=== PATIENT | female | born 1940 | race Asian ===

== ENCOUNTER → 2016-06-09 | Outpatient (CLI) | payer MEDICARE, OTHER ==
[~2016-06-09] VITALS: Ht 147.3 cm; Wt 71.0 kg
[~2016-06-09] MED LIST: ALLO300T2 PO; ASPI-825 PO; ATOR20TA86 PO; DILT60TA36 PO; FURO40 PO; HYDR25 PO; LEVO25TA4 PO; LISI-662 PO; VITAD1000 PO
[2016-06-09 10:26] VITALS: BP 122/66
== END | disposition home or self-care (01) ==
LOC: SRCNTR 10:08
PROVIDERS: ATTEND Internal Medicine Cardiovascular Disease
DX: I10 Essential (primary) hypertension (principal); E78.5 Hyperlipidemia, unspecified; E03.9 Hypothyroidism, unspecified; I49.9 Cardiac arrhythmia, unspecified; M34.1 CR(E)ST syndrome
CPT/HCPCS: G0463

== ENCOUNTER → 2016-06-12 | Outpatient (CLI) | payer MEDICARE, OTHER | END | disposition home or self-care (01) | LOC: RADPV 12:58 | PROVIDERS: ATTEND Internal Medicine | DX: M81.0 Age-related osteoporosis without current pathological fracture (principal) | CPT/HCPCS: 77080 ==

== ENCOUNTER → 2016-06-13 | Outpatient (CLI) | payer MEDICARE, OTHER ==
[~2016-06-13] VITALS: Ht 149.9 cm; Wt 70.0 kg
[2016-06-13 10:39] VITALS: BP 121/57
== END | disposition home or self-care (01) ==
LOC: SRCNTR 10:26
PROVIDERS: ATTEND Surgery Surgical Critical Care
DX: I87.2 Venous insufficiency (chronic) (peripheral) (principal); I83.93 Asymptomatic varicose veins of bilateral lower extremities
CPT/HCPCS: G0463

== ENCOUNTER → 2016-07-12 | Outpatient (CLI) | payer MEDICARE, OTHER ==
[~2016-07-12] VITALS: Ht 144.8 cm; Wt 70.0 kg
[~2016-07-12] MED LIST changes: -HYDR25 PO; +HYDR25TA84 PO
[2016-07-12 09:58] VITALS: BP 121/58
== END | disposition home or self-care (01) ==
LOC: SRCNTR 09:53
PROVIDERS: ATTEND Internal Medicine Cardiovascular Disease
DX: I10 Essential (primary) hypertension (principal); E78.5 Hyperlipidemia, unspecified; E03.9 Hypothyroidism, unspecified; I49.9 Cardiac arrhythmia, unspecified; M34.1 CR(E)ST syndrome
CPT/HCPCS: G0463

== ENCOUNTER 2016-08-14 00:23 | Emergency (ER) | payer MEDICARE, OTHER ==
[~2016-08-14] VITALS: Ht 149.9 cm; Wt 69.1 kg
[~2016-08-14 00:23] MED LIST changes: +HYDR25 PO; -HYDR25TA84 PO
[2016-08-14 01:45] LABS: BASOPHILS # (AUTO) 0.02 K/uL (0.00-0.20); BASOPHILS % (AUTO) 0.4 % (0.0-2.0); EOSINOPHILS # (AUTO) 0.16 K/uL (0.00-0.70); HEMATOCRIT 37.5 % (36-46); HEMOGLOBIN 12.1 g/dL (12.0-16.0); LYMPHOCYTES # (AUTO) 1.1 K/uL (1.0-4.8); LYMPHOCYTES % (AUTO) 19.6 % (22.0-44.0); MEAN CORPUSCULAR HEMOGLOBIN 31.2 pg (26.0-34.0); MEAN CORPUSCULAR HGB CONC 32.3 G/dL (31.0-37.0); MEAN CORPUSCULAR VOLUME 97 fL (80-100); MONOCYTES # (AUTO) 0.6 K/uL (0.1-1.0); MONOCYTES % (AUTO) 9.7 % (2.0-9.0); NEUTROPHILS # (AUTO) 3.8 K/uL (1.8-7.7); NEUTROPHILS % (AUTO) 67.4 % (40.0-70.0); PLATELET COUNT (AUTO) 229 K/uL (150-450); RED BLOOD CELL COUNT(AUTO) 3.89 MIL/uL (4.00-5.20); RED CELL DISTRIBUTION WIDTH 15.4 % (11.5-14.5); WHITE BLOOD COUNT (AUTO) 5.7 K/uL (4.5-11.0)
[2016-08-14 01:53] LABS: ANION GAP 8 mmol/L (8-16); CALCIUM, TOTAL 9.4 mg/dL (8.8-10.5); CARBON DIOXIDE 29 mmol/L (22-29); CHLORIDE 107 mmol/L (98-107); CREATININE 0.78 mg/dL (0.60-1.30); GLOMERULAR FILTR. RATE CALC > 60 mL/min (>60); POTASSIUM 4.4 mmol/L (3.5-5.1); SODIUM SERUM 144 mmol/L (136-145); UREA NITROGEN, BLOOD 16 mg/dL (7-18)
[2016-08-14 01:59] LABS: ALANINE AMINOTRANSFERASE 23 U/L (12-78); ALBUMIN 3.6 g/dL (3.4-5.0); ASPARTATE AMINOTRANSFERASE 18 U/L (15-37); BILIRUBIN,TOTAL 0.3 mg/dL (0.1-1.0); TOTAL PROTEIN, SERUM 7.4 g/dL (6.4-8.2)
[2016-08-14 04:03] VITALS: BP 134/76
[2016-08-14 04:11] LABS: INR 0.9 (0.9-1.1)
== END 2016-08-14 04:36 | disposition home or self-care (01) ==
LOC: EMS 00:24
DX: J02.9 Acute pharyngitis, unspecified (principal); K52.9 Noninfective gastroenteritis and colitis, unspecified; I10 Essential (primary) hypertension; Z91.041 Radiographic dye allergy status; Z88.0 Allergy status to penicillin; Z88.1 Allergy status to other antibiotic agents
CPT/HCPCS: 70360; 99285

== ENCOUNTER → 2016-09-11 | Outpatient (CLI) | payer MEDICARE, OTHER ==
[~2016-09-11] VITALS: Ht 144.8 cm; Wt 68.0 kg
[~2016-09-11] MED LIST changes: -HYDR25 PO; +HYDR25TA84 PO
[2016-09-11 10:56] VITALS: BP 127/64
== END | disposition home or self-care (01) ==
LOC: SRCNTR 10:30
PROVIDERS: ATTEND Internal Medicine Cardiovascular Disease
DX: I10 Essential (primary) hypertension (principal); E78.5 Hyperlipidemia, unspecified; E03.9 Hypothyroidism, unspecified; I49.9 Cardiac arrhythmia, unspecified; M34.1 CR(E)ST syndrome; R42 Dizziness and giddiness
CPT/HCPCS: G0463

== ENCOUNTER → 2016-11-10 | Outpatient (CLI) | payer MEDICARE, OTHER ==
[~2016-11-10] VITALS: Ht 147.3 cm; Wt 70.5 kg
[~2016-11-10] MED LIST changes: +ALEN70TA2 PO
[2016-11-10 10:17] VITALS: BP 94/54
== END | disposition home or self-care (01) ==
LOC: SRCNTR 10:10
PROVIDERS: ATTEND Internal Medicine Cardiovascular Disease
DX: E03.9 Hypothyroidism, unspecified (principal); E78.5 Hyperlipidemia, unspecified; I10 Essential (primary) hypertension; I49.9 Cardiac arrhythmia, unspecified; M34.1 CR(E)ST syndrome; R42 Dizziness and giddiness; Z88.0 Allergy status to penicillin; Z79.82 Long term (current) use of aspirin
CPT/HCPCS: G0463

== ENCOUNTER → 2017-01-10 | Outpatient (CLI) | payer MEDICARE, OTHER ==
[~2017-01-10] VITALS: Ht 147.3 cm; Wt 72.0 kg
[2017-01-10 10:25] VITALS: BP 141/71
== END | disposition home or self-care (01) ==
LOC: SRCNTR 10:10
PROVIDERS: ATTEND Internal Medicine Cardiovascular Disease
DX: I10 Essential (primary) hypertension (principal); E03.9 Hypothyroidism, unspecified; E78.5 Hyperlipidemia, unspecified; I49.9 Cardiac arrhythmia, unspecified; R42 Dizziness and giddiness; M34.1 CR(E)ST syndrome; Z79.82 Long term (current) use of aspirin; Z88.0 Allergy status to penicillin
CPT/HCPCS: G0463

== ENCOUNTER → 2017-03-12 | Outpatient (CLI) | payer MEDICARE, OTHER ==
[~2017-03-12] VITALS: Ht 147.3 cm; Wt 71.0 kg
[~2017-03-12] MED LIST changes: -VITAD1000 PO
[2017-03-12 11:04] VITALS: BP 115/64
== END | disposition home or self-care (01) ==
LOC: SRCNTR 10:30
PROVIDERS: ATTEND Internal Medicine Cardiovascular Disease
DX: I10 Essential (primary) hypertension (principal); E03.9 Hypothyroidism, unspecified; E78.5 Hyperlipidemia, unspecified; I49.9 Cardiac arrhythmia, unspecified; M34.1 CR(E)ST syndrome; R42 Dizziness and giddiness; M19.90 Unspecified osteoarthritis, unspecified site; Z88.0 Allergy status to penicillin; Z79.82 Long term (current) use of aspirin
CPT/HCPCS: G0463

== ENCOUNTER → 2017-04-11 | Outpatient (CLI) | payer MEDICARE, OTHER | END | disposition home or self-care (01) | LOC: RADPV 09:16 | PROVIDERS: ATTEND General Practice | DX: R04.2 Hemoptysis (principal); I70.0 Atherosclerosis of aorta; I51.7 Cardiomegaly | CPT/HCPCS: 71046 ==

== ENCOUNTER → 2017-05-16 | Outpatient (CLI) | payer MEDICARE, OTHER ==
[~2017-05-16] VITALS: Ht 144.8 cm; Wt 72.0 kg
[~2017-05-16] MED LIST changes: +TERI2.4P SQ
[2017-05-16 10:42] VITALS: BP 133/64
== END | disposition home or self-care (01) ==
LOC: SRCNTR 10:25
PROVIDERS: ATTEND Internal Medicine Cardiovascular Disease
DX: I10 Essential (primary) hypertension (principal); E03.9 Hypothyroidism, unspecified; E78.5 Hyperlipidemia, unspecified; M81.0 Age-related osteoporosis without current pathological fracture; I49.9 Cardiac arrhythmia, unspecified; M34.1 CR(E)ST syndrome; Z79.82 Long term (current) use of aspirin; Z88.0 Allergy status to penicillin
CPT/HCPCS: G0463

== ENCOUNTER → 2017-06-20 | Outpatient (CLI) | payer MEDICARE, OTHER ==
[~2017-06-20] MED LIST changes: -ALEN70TA2 PO
== END | disposition home or self-care (01) ==
LOC: RADMN 10:02
PROVIDERS: ATTEND General Practice
DX: R91.8 Other nonspecific abnormal finding of lung field (principal)
CPT/HCPCS: 71250

== ENCOUNTER → 2017-09-06 | Outpatient (CLI) | payer MEDICARE, OTHER ==
[~2017-09-06] VITALS: Ht 147.3 cm; Wt 72.0 kg
[2017-09-06 12:59] VITALS: BP 130/56
== END | disposition home or self-care (01) ==
LOC: SRCNTR 12:41
PROVIDERS: ATTEND Internal Medicine Critical Care Medicine
DX: R91.8 Other nonspecific abnormal finding of lung field (principal); I10 Essential (primary) hypertension; M10.9 Gout, unspecified; M34.1 CR(E)ST syndrome
CPT/HCPCS: G0463

== ENCOUNTER → 2017-10-15 | Outpatient (CLI) | payer MEDICARE, OTHER ==
[~2017-10-15] VITALS: Ht 147.3 cm; Wt 73.5 kg
[~2017-10-15] MED LIST changes: +HYDR10TA31 PO
[2017-10-15 10:12] VITALS: BP 124/52
== END | disposition home or self-care (01) ==
LOC: SRCNTR 10:07
PROVIDERS: ATTEND Internal Medicine Cardiovascular Disease
DX: I10 Essential (primary) hypertension (principal); I49.9 Cardiac arrhythmia, unspecified; E78.5 Hyperlipidemia, unspecified; E03.9 Hypothyroidism, unspecified; M34.1 CR(E)ST syndrome; J44.9 Chronic obstructive pulmonary disease, unspecified
CPT/HCPCS: G0463

== ENCOUNTER → 2017-10-29 | Outpatient (CLI) | payer MEDICARE, OTHER ==
[~2017-10-29] MED LIST changes: -HYDR25TA84 PO; -TERI2.4P SQ
== END | disposition home or self-care (01) ==
LOC: LABPV 10:38
PROVIDERS: ATTEND Internal Medicine Critical Care Medicine
DX: R91.1 Solitary pulmonary nodule (principal); I10 Essential (primary) hypertension; E78.5 Hyperlipidemia, unspecified; E03.9 Hypothyroidism, unspecified
CPT/HCPCS: 86480

== ENCOUNTER → 2017-11-12 | Outpatient (CLI) | payer MEDICARE, OTHER ==
[~2017-11-12] VITALS: Ht 147.3 cm; Wt 73.5 kg
[2017-11-12 11:40] VITALS: BP 116/53
== END | disposition home or self-care (01) ==
LOC: SRCNTR 11:30
PROVIDERS: ATTEND Internal Medicine Critical Care Medicine
DX: I10 Essential (primary) hypertension (principal); M10.9 Gout, unspecified; M34.1 CR(E)ST syndrome; R91.1 Solitary pulmonary nodule; M81.0 Age-related osteoporosis without current pathological fracture; E78.5 Hyperlipidemia, unspecified; E78.00 Pure hypercholesterolemia, unspecified; F41.9 Anxiety disorder, unspecified; F44.9 Dissociative and conversion disorder, unspecified; Z88.0 Allergy status to penicillin; Z88.2 Allergy status to sulfonamides
CPT/HCPCS: G0463

== ENCOUNTER → 2018-02-18 | Outpatient (CLI) | payer MEDICARE, OTHER ==
[~2018-02-18] VITALS: Ht 147.3 cm; Wt 71.0 kg
[~2018-02-18] MED LIST changes: +CALC-1038 PO; +CHOL200059 PO
[2018-02-18 10:30] VITALS: BP 123/52
== END | disposition home or self-care (01) ==
LOC: SRCNTR 10:29
PROVIDERS: ATTEND Internal Medicine Cardiovascular Disease
DX: I10 Essential (primary) hypertension (principal); E03.9 Hypothyroidism, unspecified; I49.9 Cardiac arrhythmia, unspecified; E78.5 Hyperlipidemia, unspecified; M34.1 CR(E)ST syndrome
CPT/HCPCS: 93005; G0463

== ENCOUNTER → 2018-04-22 | Outpatient (CLI) | payer MEDICARE, OTHER ==
[~2018-04-22] VITALS: Ht 144.8 cm; Wt 70.0 kg
[2018-04-22 10:12] VITALS: BP 114/47
== END | disposition home or self-care (01) ==
LOC: SRCNTR 10:05
PROVIDERS: ATTEND Internal Medicine Cardiovascular Disease
DX: I10 Essential (primary) hypertension (principal); E78.5 Hyperlipidemia, unspecified; E03.9 Hypothyroidism, unspecified
CPT/HCPCS: G0463

== ENCOUNTER → 2018-05-14 | Outpatient (CLI) | payer MEDICARE, OTHER ==
[~2018-05-14] VITALS: Ht 147.3 cm; Wt 71.0 kg
[2018-05-14 14:29] VITALS: BP 137/43
== END | disposition home or self-care (01) ==
LOC: SRCNTR 14:12
PROVIDERS: ATTEND Internal Medicine Critical Care Medicine
DX: I10 Essential (primary) hypertension (principal); R07.1 Chest pain on breathing; M10.9 Gout, unspecified
CPT/HCPCS: G0463

== ENCOUNTER → 2018-05-17 | Outpatient (CLI) | payer MEDICARE, OTHER | END | disposition home or self-care (01) | LOC: RADMN 12:59 | PROVIDERS: ATTEND Internal Medicine Critical Care Medicine | DX: J98.4 Other disorders of lung (principal); Z90.49 Acquired absence of other specified parts of digestive tract | CPT/HCPCS: 71250 ==

== ENCOUNTER → 2018-06-21 | Outpatient (CLI) | payer MEDICARE, OTHER ==
[~2018-06-21] VITALS: Ht 147.3 cm; Wt 71.0 kg
[2018-06-21 10:37] VITALS: BP 143/76
== END | disposition home or self-care (01) ==
LOC: SRCNTR 10:20
PROVIDERS: ATTEND Internal Medicine Cardiovascular Disease
DX: E78.5 Hyperlipidemia, unspecified (principal); E03.9 Hypothyroidism, unspecified; I49.9 Cardiac arrhythmia, unspecified; I10 Essential (primary) hypertension
CPT/HCPCS: G0463

== ENCOUNTER → 2018-07-01 | Outpatient (CLI) | payer MEDICARE, OTHER ==
[~2018-07-01] VITALS: Ht 144.8 cm; Wt 70.0 kg
[~2018-07-01] MED LIST changes: -DILT60TA36 PO
[2018-07-01 13:32] VITALS: BP 149/64
== END | disposition home or self-care (01) ==
LOC: SRCNTR 13:22
PROVIDERS: ATTEND Internal Medicine Critical Care Medicine
DX: I10 Essential (primary) hypertension (principal); M10.9 Gout, unspecified; M34.1 CR(E)ST syndrome; R91.1 Solitary pulmonary nodule
CPT/HCPCS: G0463

== ENCOUNTER → 2018-11-25 | Outpatient (CLI) | payer MEDICARE, OTHER ==
[~2018-11-25] VITALS: Ht 144.8 cm; Wt 71.0 kg
[2018-11-25 11:03] VITALS: BP 146/62
== END | disposition home or self-care (01) ==
LOC: SRCNTR 11:03
PROVIDERS: ATTEND Internal Medicine Cardiovascular Disease
DX: I10 Essential (primary) hypertension (principal); E78.5 Hyperlipidemia, unspecified; E03.9 Hypothyroidism, unspecified
CPT/HCPCS: G0463

== ENCOUNTER → 2019-10-16 | Outpatient (CLI) | payer MEDICARE, OTHER ==
[~2019-10-16] MED LIST changes: +CHOL200016 PO; -CHOL200059 PO
== END | disposition home or self-care (01) ==
LOC: SRCNTR 14:02
PROVIDERS: ATTEND Internal Medicine Cardiovascular Disease
DX: I49.9 Cardiac arrhythmia, unspecified (principal); I10 Essential (primary) hypertension; E78.5 Hyperlipidemia, unspecified; E03.9 Hypothyroidism, unspecified
CPT/HCPCS: Q3014

== ENCOUNTER → 2019-10-23 | Outpatient (CLI) | payer MEDICARE, OTHER ==
[2019-10-23 10:24] LABS: BASOPHILS % (AUTO) 1.2 % (0.0-2.0); EOSINOPHILS % (AUTO) 3.4 % (1.0-6.0); HEMATOCRIT 39.5 % (36-46); HEMOGLOBIN 13.1 g/dL (12.0-16.0); LYMPHOCYTES # (AUTO) 1.6 K/uL (1.0-4.8); LYMPHOCYTES % (AUTO) 30.6 % (22.0-44.0); MEAN CORPUSCULAR HEMOGLOBIN 32.8 pg (26.0-34.0); MEAN CORPUSCULAR HGB CONC 33.3 G/dL (31.0-37.0); MEAN CORPUSCULAR VOLUME 99 fL (80-100); MONOCYTES # (AUTO) 0.5 K/uL (0.1-1.0); MONOCYTES % (AUTO) 9.7 % (2.0-9.0); NEUTROPHILS # (AUTO) 2.9 K/uL (1.8-7.7); NEUTROPHILS % (AUTO) 55.1 % (40.0-70.0); PLATELET COUNT (AUTO) 222 K/uL (150-450); RED BLOOD CELL COUNT(AUTO) 4.01 MIL/uL (4.00-5.20); RED CELL DISTRIBUTION WIDTH 14.3 % (11.5-14.5)
[2019-10-23 10:41] LABS: HEMOGLOBIN A1C 5.2 % (3.8-5.6)
[2019-10-23 10:59] LABS: ALBUMIN 3.7 g/dL (3.4-5.0); BILIRUBIN,TOTAL 0.4 mg/dL (0.1-1.0); CALCIUM, TOTAL 9.8 mg/dL (8.8-10.5); CHOL/HDL RATIO 2.5 (3.9-5.7); CREATININE 1.1 mg/dL (0.60-1.30); FREE T4 (FREE THYROXINE) 1.23 ng/dL (0.76-1.46); POTASSIUM 4.6 mmol/L (3.5-5.1); THYROID STIMULATING HORMONE 3.92 uIU/mL (0.36-3.74); TOTAL PROTEIN, SERUM 8.4 g/dL (6.4-8.2)
== END | disposition home or self-care (01) ==
LOC: LABPV 09:26
PROVIDERS: ATTEND Internal Medicine Cardiovascular Disease
DX: I10 Essential (primary) hypertension (principal); E11.9 Type 2 diabetes mellitus without complications; E78.5 Hyperlipidemia, unspecified; Z79.899 Other long term (current) drug therapy
CPT/HCPCS: 82306; 83036; 84439; 84443

== ENCOUNTER → 2019-11-24 | Outpatient (CLI) | payer MEDICARE, OTHER ==
[~2019-11-24] VITALS: Ht 147.3 cm; Wt 71.8 kg
[2019-11-24 10:29] VITALS: BP 128/56
== END | disposition home or self-care (01) ==
LOC: SRCNTR 10:28
PROVIDERS: ATTEND Internal Medicine Cardiovascular Disease
DX: I10 Essential (primary) hypertension (principal); I49.9 Cardiac arrhythmia, unspecified; E78.5 Hyperlipidemia, unspecified; E03.9 Hypothyroidism, unspecified; M34.1 CR(E)ST syndrome; E79.0 Hyperuricemia without signs of inflammatory arthritis and tophaceous disease; M19.90 Unspecified osteoarthritis, unspecified site
CPT/HCPCS: G0463; Z7500

== ENCOUNTER → 2020-01-26 | Outpatient (CLI) | payer MEDICARE, OTHER ==
[~2020-01-26] VITALS: Ht 147.3 cm; Wt 73.0 kg
[2020-01-26 10:34] VITALS: BP 131/52
== END | disposition home or self-care (01) ==
LOC: SRCNTR 10:31
PROVIDERS: ATTEND Internal Medicine Cardiovascular Disease
DX: I49.9 Cardiac arrhythmia, unspecified (principal); I10 Essential (primary) hypertension; E78.5 Hyperlipidemia, unspecified; E03.9 Hypothyroidism, unspecified; M34.1 CR(E)ST syndrome; E79.0 Hyperuricemia without signs of inflammatory arthritis and tophaceous disease
CPT/HCPCS: G0463; Z7500

== ENCOUNTER → 2020-03-10 | Outpatient (CLI) | payer MEDICARE, OTHER ==
[~2020-03-10] VITALS: Ht 144.8 cm; Wt 72.0 kg
[2020-03-10 10:51] VITALS: BP 141/71
== END | disposition home or self-care (01) ==
LOC: SRCNTR 10:36
PROVIDERS: ATTEND Internal Medicine Cardiovascular Disease
DX: I49.9 Cardiac arrhythmia, unspecified (principal); I10 Essential (primary) hypertension; E78.5 Hyperlipidemia, unspecified; E03.9 Hypothyroidism, unspecified; M10.9 Gout, unspecified
CPT/HCPCS: G0463

== ENCOUNTER → 2020-03-10 | Outpatient (CLI) | payer MEDICARE, OTHER | END | disposition home or self-care (01) | LOC: RADPV 11:17 | PROVIDERS: ATTEND Internal Medicine Cardiovascular Disease | DX: I70.0 Atherosclerosis of aorta (principal); I51.7 Cardiomegaly; J92.9 Pleural plaque without asbestos; M51.34 Other intervertebral disc degeneration, thoracic region; J18.9 Pneumonia, unspecified organism | CPT/HCPCS: 71046; 71046-TC ==

== ENCOUNTER → 2020-04-22 | Outpatient (CLI) | payer MEDICARE, OTHER ==
[~2020-04-22] VITALS: Ht 147.3 cm; Wt 71.7 kg
[2020-04-22 12:17] VITALS: BP 133/77
== END | disposition home or self-care (01) ==
LOC: SRCNTR 11:51
PROVIDERS: ATTEND Internal Medicine Critical Care Medicine
DX: I10 Essential (primary) hypertension (principal); M10.9 Gout, unspecified; R91.8 Other nonspecific abnormal finding of lung field; Z79.82 Long term (current) use of aspirin; Z79.899 Other long term (current) drug therapy; Z88.0 Allergy status to penicillin
CPT/HCPCS: G0463; Z7500

== ENCOUNTER → 2020-04-28 | Outpatient (CLI) | payer MEDICARE, OTHER | END | disposition home or self-care (01) | LOC: RADMN 09:34 | PROVIDERS: ATTEND Internal Medicine Critical Care Medicine | DX: J98.4 Other disorders of lung (principal); I70.0 Atherosclerosis of aorta; R91.1 Solitary pulmonary nodule; I51.7 Cardiomegaly; I25.10 Atherosclerotic heart disease of native coronary artery without angina pectoris | CPT/HCPCS: 71250 ==

== ENCOUNTER → 2020-05-12 | Outpatient (CLI) | payer MEDICARE, OTHER ==
[~2020-05-12] VITALS: Ht 144.8 cm; Wt 70.4 kg
[~2020-05-12] MED LIST changes: -LISI-662 PO; +LISI-894 PO
[2020-05-12 10:17] VITALS: BP 126/56
== END | disposition home or self-care (01) ==
LOC: SRCNTR 09:59
PROVIDERS: ATTEND Internal Medicine Cardiovascular Disease
DX: I10 Essential (primary) hypertension (principal); E78.5 Hyperlipidemia, unspecified; E03.9 Hypothyroidism, unspecified; I49.9 Cardiac arrhythmia, unspecified; M34.1 CR(E)ST syndrome; M10.9 Gout, unspecified
CPT/HCPCS: G0463; Z7500

== ENCOUNTER → 2020-07-14 | Outpatient (CLI) | payer MEDICARE, OTHER ==
[~2020-07-14] VITALS: Ht 144.8 cm; Wt 70.4 kg
[2020-07-14 10:29] VITALS: BP 139/59
== END | disposition home or self-care (01) ==
LOC: SRCNTR 10:07
PROVIDERS: ATTEND Internal Medicine Cardiovascular Disease
DX: I10 Essential (primary) hypertension (principal); E78.5 Hyperlipidemia, unspecified; E03.9 Hypothyroidism, unspecified; M19.90 Unspecified osteoarthritis, unspecified site; I49.9 Cardiac arrhythmia, unspecified; M34.1 CR(E)ST syndrome
CPT/HCPCS: 93005; G0463

== ENCOUNTER → 2020-07-30 | Outpatient (CLI) | payer MEDICARE, OTHER ==
[~2020-07-30] VITALS: Ht 147.3 cm; Wt 72.0 kg
[2020-07-30 11:06] VITALS: BP 127/48
== END | disposition home or self-care (01) ==
LOC: SRCNTR 10:15
PROVIDERS: ATTEND Internal Medicine Critical Care Medicine
DX: I10 Essential (primary) hypertension (principal); M34.1 CR(E)ST syndrome; I73.00 Raynaud's syndrome without gangrene; R91.1 Solitary pulmonary nodule; M10.9 Gout, unspecified
CPT/HCPCS: G0463

== ENCOUNTER 2020-08-19 23:48 | Emergency (ER) | payer MEDICARE, OTHER ==
[~2020-08-19] VITALS: Ht 152.4 cm; Wt 77.0 kg
[2020-08-20 02:30] VITALS: BP 130/77
== END 2020-08-20 02:36 | disposition home or self-care (01) ==
LOC: EMS 08-20 01:00
DX: I10 Essential (primary) hypertension (principal); Z90.710 Acquired absence of both cervix and uterus; Z90.89 Acquired absence of other organs; Z88.0 Allergy status to penicillin; Z88.8 Allergy status to other drugs, medicaments and biological substances; Z91.041 Radiographic dye allergy status; Z79.899 Other long term (current) drug therapy
CPT/HCPCS: 99283; Z7502

== ENCOUNTER → 2020-09-03 | Outpatient (CLI) | payer MEDICARE, OTHER | END | disposition home or self-care (01) | LOC: RADPV 09:23 | PROVIDERS: ATTEND General Practice | DX: M85.88 Other specified disorders of bone density and structure, other site (principal); M81.0 Age-related osteoporosis without current pathological fracture | CPT/HCPCS: 77080 ==

== ENCOUNTER → 2020-09-13 | Outpatient (CLI) | payer MEDICARE, OTHER ==
[~2020-09-13] VITALS: Ht 147.3 cm; Wt 70.0 kg
[2020-09-13 10:49] VITALS: BP 122/73
== END | disposition home or self-care (01) ==
LOC: SRCNTR 10:24
PROVIDERS: ATTEND Internal Medicine Cardiovascular Disease
DX: I10 Essential (primary) hypertension (principal); E78.5 Hyperlipidemia, unspecified; E03.9 Hypothyroidism, unspecified; I49.9 Cardiac arrhythmia, unspecified; M34.1 CR(E)ST syndrome; E79.0 Hyperuricemia without signs of inflammatory arthritis and tophaceous disease
CPT/HCPCS: G0463

== ENCOUNTER → 2020-11-12 | Outpatient (CLI) | payer MEDICARE, OTHER ==
[~2020-11-12] VITALS: Ht 144.8 cm; Wt 72.0 kg
[~2020-11-12] MED LIST changes: -CALC-1038 PO
[2020-11-12 09:59] VITALS: BP 122/65
== END | disposition home or self-care (01) ==
LOC: SRCNTR 09:12
PROVIDERS: ATTEND Internal Medicine Critical Care Medicine
DX: I10 Essential (primary) hypertension (principal); I73.00 Raynaud's syndrome without gangrene; M10.9 Gout, unspecified; R91.1 Solitary pulmonary nodule; M34.1 CR(E)ST syndrome
CPT/HCPCS: G0463

== ENCOUNTER → 2020-11-15 | Outpatient (CLI) | payer MEDICARE, OTHER ==
[~2020-11-15] MED LIST changes: +ALEN70TA65 PO
== END | disposition home or self-care (01) ==
LOC: MSR 09:27
PROVIDERS: ATTEND Internal Medicine Critical Care Medicine
DX: I51.7 Cardiomegaly (principal); M47.812 Spondylosis without myelopathy or radiculopathy, cervical region; M47.814 Spondylosis without myelopathy or radiculopathy, thoracic region
CPT/HCPCS: 71046

== ENCOUNTER → 2020-11-15 | Outpatient (CLI) | payer MEDICARE, OTHER ==
[~2020-11-15] VITALS: Ht 144.8 cm; Wt 71.0 kg
[2020-11-15 10:15] VITALS: BP 134/58
== END | disposition home or self-care (01) ==
LOC: SRCNTR 09:58
PROVIDERS: ATTEND Internal Medicine Cardiovascular Disease
DX: I10 Essential (primary) hypertension (principal); E03.9 Hypothyroidism, unspecified; E78.5 Hyperlipidemia, unspecified; I49.9 Cardiac arrhythmia, unspecified; M34.1 CR(E)ST syndrome; E79.0 Hyperuricemia without signs of inflammatory arthritis and tophaceous disease
CPT/HCPCS: G0463; Z7500

== ENCOUNTER → 2020-12-21 | Outpatient (CLI) | payer MEDICARE, OTHER ==
[2020-12-21 11:04] VITALS: BP 157/68
== END | disposition home or self-care (01) ==
LOC: SRCNTR 10:18
PROVIDERS: ATTEND Internal Medicine Critical Care Medicine
DX: I10 Essential (primary) hypertension (principal); I73.00 Raynaud's syndrome without gangrene; M10.9 Gout, unspecified; M34.1 CR(E)ST syndrome; R91.8 Other nonspecific abnormal finding of lung field
CPT/HCPCS: G0463

== ENCOUNTER → 2021-01-14 | Outpatient (CLI) | payer MEDICARE, OTHER ==
[~2021-01-14] VITALS: Ht 147.3 cm; Wt 71.2 kg
[~2021-01-14] MED LIST changes: +TRI2515C TP
[2021-01-14 12:26] VITALS: BP 137/75
== END | disposition home or self-care (01) ==
LOC: SRCNTR 12:23
PROVIDERS: ATTEND Internal Medicine Cardiovascular Disease
DX: I10 Essential (primary) hypertension (principal); E78.5 Hyperlipidemia, unspecified; E03.9 Hypothyroidism, unspecified; I49.9 Cardiac arrhythmia, unspecified; M34.1 CR(E)ST syndrome; E79.0 Hyperuricemia without signs of inflammatory arthritis and tophaceous disease
CPT/HCPCS: G0463

== ENCOUNTER → 2021-01-25 | Outpatient (CLI) | payer MEDICARE, OTHER | END | disposition home or self-care (01) | LOC: RADPV 12:26 | PROVIDERS: ATTEND Internal Medicine Cardiovascular Disease | DX: I08.3 Combined rheumatic disorders of mitral, aortic and tricuspid valves (principal); I50.1 Left ventricular failure, unspecified | CPT/HCPCS: 93306 ==

== ENCOUNTER 2021-02-12 12:41 | Emergency (ER) | payer MEDICARE, OTHER ==
[~2021-02-12] VITALS: Ht 149.9 cm; Wt 71.4 kg
[2021-02-12 13:51] VITALS: BP 176/62
[2021-02-12 14:11] LABS: BASOPHILS % (AUTO) 1.4 % (0.0-2.0); EOSINOPHILS % (AUTO) 2.8 % (1.0-6.0); HEMATOCRIT 40.2 % (36-46); HEMOGLOBIN 13.1 g/dL (12.0-16.0); LYMPHOCYTES # (AUTO) 1.3 K/uL (1.0-4.8); LYMPHOCYTES % (AUTO) 28.2 % (22.0-44.0); MEAN CORPUSCULAR HEMOGLOBIN 31.5 pg (26.0-34.0); MEAN CORPUSCULAR HGB CONC 32.5 G/dL (31.0-37.0); MEAN CORPUSCULAR VOLUME 97 fL (80-100); MONOCYTES # (AUTO) 0.5 K/uL (0.1-1.0); NEUTROPHILS # (AUTO) 2.7 K/uL (1.8-7.7); NEUTROPHILS % (AUTO) 56.6 % (40.0-70.0); RED BLOOD CELL COUNT(AUTO) 4.15 MIL/uL (4.00-5.20); RED CELL DISTRIBUTION WIDTH 14.1 % (11.5-14.5)
[2021-02-12 14:19] LABS: PLATELET COUNT (AUTO) 177 K/uL (150-450)
[2021-02-12 14:24] LABS: LACTIC ACID 1.2 mmol/L (0.4-2.0)
[2021-02-12 14:34] LABS: CREATININE 1.06 mg/dL (0.60-1.30); POTASSIUM 4.3 mmol/L (3.5-5.1)
[2021-02-12 14:41] LABS: ALBUMIN 3.8 g/dL (3.4-5.0); BILIRUBIN,TOTAL 0.6 mg/dL (0.1-1.0)
== END 2021-02-12 15:55 | disposition home or self-care (01) ==
LOC: EMS 12:41
DX: R04.2 Hemoptysis (principal); R05.9 Cough, unspecified; I10 Essential (primary) hypertension; Z90.710 Acquired absence of both cervix and uterus; Z90.89 Acquired absence of other organs; Z88.0 Allergy status to penicillin; Z88.6 Allergy status to analgesic agent; Z91.041 Radiographic dye allergy status; Z79.899 Other long term (current) drug therapy
CPT/HCPCS: 71045; 80053; 83605; 83880; 84484; 85025; 93005; 99285; 36415-L1; 36415-TC

== ENCOUNTER → 2021-02-15 | Outpatient (CLI) | payer MEDICARE, OTHER ==
[~2021-02-15] VITALS: Ht 144.8 cm; Wt 70.0 kg
[~2021-02-15] MED LIST changes: +INFLUENZA VIRUS VACCINE QVS 2021-22 (6MO+)/PF 60 MCG/0.5 ML SYRINGE IM. ONE
[2021-02-15 14:06] VITALS: BP 104/74
== END | disposition home or self-care (01) ==
LOC: SRCNTR 13:31
PROVIDERS: ATTEND Internal Medicine Cardiovascular Disease
DX: Z23 Encounter for immunization (principal); I10 Essential (primary) hypertension; R05.9 Cough, unspecified; R04.2 Hemoptysis; E78.5 Hyperlipidemia, unspecified; E03.9 Hypothyroidism, unspecified; Z90.710 Acquired absence of both cervix and uterus; Z79.899 Other long term (current) drug therapy
CPT/HCPCS: 90471; 90686; G0463

== ENCOUNTER → 2021-02-16 | Outpatient (CLI) | payer MEDICARE, OTHER ==
[~2021-02-16] VITALS: Ht 144.8 cm; Wt 70.0 kg
[~2021-02-16] MED LIST changes: -ALEN70TA65 PO; -INFLUENZA VIRUS VACCINE QVS 2021-22 (6MO+)/PF 60 MCG/0.5 ML SYRINGE IM. ONE
[2021-02-16 11:54] VITALS: BP 102/47
== END | disposition home or self-care (01) ==
LOC: SRCNTR 10:07
PROVIDERS: ATTEND Internal Medicine Critical Care Medicine
DX: I10 Essential (primary) hypertension (principal); M10.9 Gout, unspecified; M34.1 CR(E)ST syndrome; I73.00 Raynaud's syndrome without gangrene; R91.8 Other nonspecific abnormal finding of lung field
CPT/HCPCS: G0463

== ENCOUNTER 2021-03-17 04:22 | Emergency (ER) | payer MEDICARE, OTHER ==
[~2021-03-17] VITALS: Ht 149.9 cm; Wt 72.0 kg
[2021-03-17] MEDS ORDERED: ONDANSETRON HCL 4 MG/2 ML VIAL IVP ONE ×2 (04:45→07:15)
[2021-03-17] MEDS ORDERED: SODIUM CHLORIDE 0.9% 500 ML IV ONE (04:45)
[2021-03-17] MEDS ORDERED: FAMOTIDINE 10 MG/ML 2 ML VIAL IVP ONE (04:45)
[2021-03-17] MEDS ORDERED: MORPHINE SULFATE 2 MG/ML SYRINGE IVP ONE ×2 (04:45→06:45)
[2021-03-17 04:55] LABS: BASOPHILS % (AUTO) 0.5 % (0.0-2.0); EOSINOPHILS % (AUTO) 1.8 % (1.0-6.0); HEMATOCRIT 39.2 % (36-46); HEMOGLOBIN 12.9 g/dL (12.0-16.0); LYMPHOCYTES # (AUTO) 1.7 K/uL (1.0-4.8); LYMPHOCYTES % (AUTO) 25.6 % (22.0-44.0); MEAN CORPUSCULAR HEMOGLOBIN 31.9 pg (26.0-34.0); MEAN CORPUSCULAR HGB CONC 32.8 G/dL (31.0-37.0); MEAN CORPUSCULAR VOLUME 97 fL (80-100); MONOCYTES # (AUTO) 0.4 K/uL (0.1-1.0); MONOCYTES % (AUTO) 6.6 % (2.0-9.0); NEUTROPHILS # (AUTO) 4.4 K/uL (1.8-7.7); NEUTROPHILS % (AUTO) 65.5 % (40.0-70.0); PLATELET COUNT (AUTO) 182 K/uL (150-450); RED BLOOD CELL COUNT(AUTO) 4.04 MIL/uL (4.00-5.20); RED CELL DISTRIBUTION WIDTH 14.2 % (11.5-14.5)
[2021-03-17 05:01] LABS: CALCIUM, TOTAL 10.7 mg/dL (8.8-10.5); CREATININE 0.97 mg/dL (0.60-1.30); POTASSIUM 3.9 mmol/L (3.5-5.1)
[2021-03-17 05:11] LABS: ALBUMIN 3.7 g/dL (3.4-5.0); BILIRUBIN,TOTAL 0.4 mg/dL (0.1-1.0); TOTAL PROTEIN, SERUM 7.7 g/dL (6.4-8.2)
[2021-03-17 05:13] LABS: PROTHROMBIN TIME 10.2 SEC (9.4-11.6)
[2021-03-17 06:17] LABS: APPEARANCE,URINE CLEAR (CLEAR); BILIRUBIN,URINE NEGATIVE (NEGATIVE); GLUCOSE, URINE (UA) NEGATIVE (NEGATIVE); KETONES,URINE NEGATIVE (NEGATIVE); LEUKOCYTE ESTERASE ,URINE NEGATIVE (NEGATIVE); NITRATE,URINE NEGATIVE (NEGATIVE); OCCULT BLOOD,URINE NEGATIVE (NEGATIVE); PROTEIN,URINE NEGATIVE (NEGATIVE)
[2021-03-17] MEDS ORDERED: MetroNIDAZOLE 250 MG TABLET PO ONE (08:45)
[2021-03-17 10:54] VITALS: BP 149/79
== END 2021-03-17 10:55 | disposition home or self-care (01) ==
LOC: EMS 04:23
DX: K52.9 Noninfective gastroenteritis and colitis, unspecified (principal); R11.2 Nausea with vomiting, unspecified; I10 Essential (primary) hypertension; E03.9 Hypothyroidism, unspecified; Z88.0 Allergy status to penicillin; Z88.1 Allergy status to other antibiotic agents; Z88.8 Allergy status to other drugs, medicaments and biological substances; Z79.82 Long term (current) use of aspirin; Z79.899 Other long term (current) drug therapy
CPT/HCPCS: 36415; 71045; 74176; 80053; 81003; 82550; 83690; 83880; 84484; 85025; 85610; 85730; 93005; 96374; 96375; 96376; 99285; J2270; J2405; J3490; J7030

== ENCOUNTER → 2021-04-18 | Outpatient (CLI) | payer MEDICARE, OTHER ==
[~2021-04-18] VITALS: Ht 144.8 cm; Wt 66.0 kg
[~2021-04-18] MED LIST changes: +AMLO2.5T96 PO
[2021-04-18 10:34] VITALS: BP 125/46
== END | disposition home or self-care (01) ==
LOC: SRCNTR 10:11
PROVIDERS: ATTEND Internal Medicine Cardiovascular Disease
DX: I10 Essential (primary) hypertension (principal); E78.5 Hyperlipidemia, unspecified; E03.9 Hypothyroidism, unspecified; I49.8 Other specified cardiac arrhythmias; M34.1 CR(E)ST syndrome; M10.9 Gout, unspecified
CPT/HCPCS: G0463; Z7500

== ENCOUNTER → 2021-06-20 | Outpatient (CLI) | payer MEDICARE, OTHER ==
[~2021-06-20] VITALS: Ht 144.8 cm; Wt 67.0 kg
[2021-06-20 10:13] VITALS: BP 145/57
== END | disposition home or self-care (01) ==
LOC: SRCNTR 09:53
PROVIDERS: ATTEND Internal Medicine Cardiovascular Disease
DX: I10 Essential (primary) hypertension (principal); E78.5 Hyperlipidemia, unspecified; E03.9 Hypothyroidism, unspecified; I49.9 Cardiac arrhythmia, unspecified; M34.1 CR(E)ST syndrome; E79.0 Hyperuricemia without signs of inflammatory arthritis and tophaceous disease
CPT/HCPCS: G0463

== ENCOUNTER → 2021-08-22 | Outpatient (CLI) | payer MEDICARE, OTHER ==
[~2021-08-22] VITALS: Ht 144.8 cm; Wt 67.4 kg
[~2021-08-22] MED LIST changes: +DENO60DI SQ
[2021-08-22 10:02] VITALS: BP 125/56
== END | disposition home or self-care (01) ==
LOC: SRCNTR 09:41
PROVIDERS: ATTEND Internal Medicine Cardiovascular Disease
DX: I10 Essential (primary) hypertension (principal); E78.5 Hyperlipidemia, unspecified; E03.9 Hypothyroidism, unspecified; I49.9 Cardiac arrhythmia, unspecified; M34.1 CR(E)ST syndrome
CPT/HCPCS: G0463; Z7500

== ENCOUNTER → 2021-09-09 | Outpatient (CLI) | payer MEDICARE, OTHER ==
[~2021-09-09] VITALS: Ht 144.8 cm; Wt 69.0 kg
[~2021-09-09] MED LIST changes: -TRI2515C TP
[2021-09-09 10:09] VITALS: BP 140/58
== END | disposition home or self-care (01) ==
LOC: SRCNTR 09:53
PROVIDERS: ATTEND Internal Medicine Cardiovascular Disease
DX: E79.0 Hyperuricemia without signs of inflammatory arthritis and tophaceous disease (principal); I10 Essential (primary) hypertension; E78.5 Hyperlipidemia, unspecified; E03.9 Hypothyroidism, unspecified; I49.9 Cardiac arrhythmia, unspecified; M34.1 CR(E)ST syndrome
CPT/HCPCS: G0463

== ENCOUNTER → 2021-10-11 | Outpatient (CLI) | payer MEDICARE, OTHER ==
[~2021-10-11] VITALS: Ht 144.8 cm; Wt 63.9 kg
[2021-10-11 12:01] VITALS: BP 135/51
== END | disposition home or self-care (01) ==
LOC: SRCNTR 11:12
PROVIDERS: ATTEND Internal Medicine Critical Care Medicine
DX: I10 Essential (primary) hypertension (principal); Z09 Encounter for follow-up examination after completed treatment for conditions other than malignant neoplasm; M10.9 Gout, unspecified; I73.00 Raynaud's syndrome without gangrene; R91.8 Other nonspecific abnormal finding of lung field; M34.1 CR(E)ST syndrome
CPT/HCPCS: G0463; Z7500

== ENCOUNTER → 2021-10-20 | Outpatient (CLI) | payer MEDICARE, OTHER ==
[~2021-10-20] MED LIST changes: -ALLO300T2 PO
== END | disposition home or self-care (01) ==
LOC: RADMN 09:57
PROVIDERS: ATTEND Internal Medicine Critical Care Medicine
DX: R91.1 Solitary pulmonary nodule (principal); I25.84 Coronary atherosclerosis due to calcified coronary lesion
CPT/HCPCS: 71250

== ENCOUNTER → 2021-10-24 | Outpatient (CLI) | payer MEDICARE, OTHER ==
[~2021-10-24] VITALS: Ht 144.8 cm; Wt 67.4 kg
[2021-10-24 09:58] VITALS: BP 118/62
== END | disposition home or self-care (01) ==
LOC: SRCNTR 09:45
PROVIDERS: ATTEND Internal Medicine Cardiovascular Disease
DX: I10 Essential (primary) hypertension (principal); Z09 Encounter for follow-up examination after completed treatment for conditions other than malignant neoplasm; E78.5 Hyperlipidemia, unspecified; E03.9 Hypothyroidism, unspecified; I49.8 Other specified cardiac arrhythmias; M34.1 CR(E)ST syndrome; E79.0 Hyperuricemia without signs of inflammatory arthritis and tophaceous disease
CPT/HCPCS: G0463

== ENCOUNTER → 2021-11-10 | Outpatient (CLI) | payer MEDICARE, OTHER ==
[~2021-11-10] VITALS: Ht 144.8 cm; Wt 71.0 kg
[2021-11-10 10:05] VITALS: BP 133/58
== END | disposition home or self-care (01) ==
LOC: SRCNTR 09:52
PROVIDERS: ATTEND Internal Medicine Critical Care Medicine
DX: I10 Essential (primary) hypertension (principal); M10.9 Gout, unspecified; I73.00 Raynaud's syndrome without gangrene; R91.8 Other nonspecific abnormal finding of lung field; M34.1 CR(E)ST syndrome
CPT/HCPCS: G0463; Z7500

== ENCOUNTER → 2021-11-11 | Outpatient (CLI) | payer MEDICARE, OTHER | END | disposition home or self-care (01) | LOC: LABMN 11:29 | PROVIDERS: ATTEND Internal Medicine Critical Care Medicine | DX: A31.2 Disseminated mycobacterium avium-intracellulare complex (DMAC) (principal) | CPT/HCPCS: 82785; 86635; 87070; 87205 ==

== ENCOUNTER → 2021-11-22 | Outpatient (CLI) | payer MEDICARE, OTHER ==
[2021-11-22 12:53] LABS: BASOPHILS % (AUTO) 1.2 % (0.0-2.0); EOSINOPHILS % (AUTO) 4.2 % (1.0-6.0); HEMOGLOBIN 13.1 g/dL (12.0-16.0); LYMPHOCYTES # (AUTO) 1.6 K/uL (1.0-4.8); LYMPHOCYTES % (AUTO) 32.9 % (22.0-44.0); MEAN CORPUSCULAR HGB CONC 33.7 G/dL (31.0-37.0); MEAN CORPUSCULAR VOLUME 92 fL (80-100); MONOCYTES # (AUTO) 0.5 K/uL (0.1-1.0); MONOCYTES % (AUTO) 11.4 % (2.0-9.0); NEUTROPHILS # (AUTO) 2.4 K/uL (1.8-7.7); NEUTROPHILS % (AUTO) 50.3 % (40.0-70.0); PLATELET COUNT (AUTO) 182 K/uL (150-450); RED BLOOD CELL COUNT(AUTO) 4.24 MIL/uL (4.00-5.20); RED CELL DISTRIBUTION WIDTH 13.9 % (11.5-14.5)
[2021-11-22 12:59] LABS: HEMOGLOBIN A1C 5.5 % (3.8-5.6)
[2021-11-22 13:16] LABS: ALANINE AMINOTRANSFERASE 20 U/L (12-78); ALBUMIN 3.9 g/dL (3.4-5.0); ALKALINE PHOSPHATASE 66 U/L (46-116); ANION GAP 9 mmol/L (8-16); ASPARTATE AMINOTRANSFERASE 21 U/L (15-37); BILIRUBIN,TOTAL 0.4 mg/dL (0.1-1.0); CALCIUM, TOTAL 9.6 mg/dL (8.8-10.5); CARBON DIOXIDE 29 mmol/L (22-29); CHLORIDE 102 mmol/L (98-107); CHOL/HDL RATIO 2.6 (3.9-5.7); CHOLESTEROL 164 mg/dL (131-200); CREATININE 0.86 mg/dL (0.60-1.30); GLUCOSE,RANDOM 93 mg/dL (70-110); HDL CHOLESTEROL 64 mg/dL (40-60); LDL CHOL (CALC.) 67 mg/dL (0-130); POTASSIUM 4.1 mmol/L (3.5-5.1); SODIUM SERUM 140 mmol/L (136-145); THYROID STIMULATING HORMONE 3.29 uIU/mL (0.36-3.74); TRIGLYCERIDES 164 mg/dL (15-150); UREA NITROGEN, BLOOD 22 mg/dL (7-18)
[2021-11-22 13:17] LABS: GLOMERULAR FILTR. RATE CALC > 60 mL/min (>60)
[2021-11-22 13:26] LABS: URIC ACID 6.5 mg/dL (2.6-7.2)
== END | disposition home or self-care (01) ==
LOC: LABMN 12:30
PROVIDERS: ATTEND General Practice
DX: I12.9 Hypertensive chronic kidney disease with stage 1 through stage 4 chronic kidney disease, or unspecified chronic kidney disease (principal); N18.9 Chronic kidney disease, unspecified; E03.9 Hypothyroidism, unspecified; R73.03 Prediabetes; E78.5 Hyperlipidemia, unspecified; M06.9 Rheumatoid arthritis, unspecified
CPT/HCPCS: 80053; 80061; 83036; 84443; 84550; 85025

== ENCOUNTER → 2021-12-26 | Outpatient (CLI) | payer MEDICARE, OTHER ==
[~2021-12-26] MED LIST changes: +GABA-1181 PO
[2021-12-26 09:49] VITALS: BP 137/54
== END | disposition home or self-care (01) ==
LOC: SRCNTR 09:31
PROVIDERS: ATTEND Internal Medicine Cardiovascular Disease
DX: I10 Essential (primary) hypertension (principal); Z09 Encounter for follow-up examination after completed treatment for conditions other than malignant neoplasm; E78.5 Hyperlipidemia, unspecified; E03.9 Hypothyroidism, unspecified; I49.9 Cardiac arrhythmia, unspecified; M34.1 CR(E)ST syndrome
CPT/HCPCS: G0463; Z7500

== ENCOUNTER 2021-12-29 13:41 | Emergency (ER) | payer MEDICARE, OTHER ==
[~2021-12-29] VITALS: Ht 149.9 cm; Wt 66.4 kg
[~2021-12-29 13:41] MED LIST changes: -GABA-1181 PO
[2021-12-29] MEDS ORDERED: ACETAMINOPHEN 500 MG TABLET PO ONE (14:45)
[2021-12-29] MEDS ORDERED: GABAPENTIN 300 MG CAPSULE PO ONE (14:45)
[2021-12-29] MEDS: TraMADol HCL 50 MG TABLET PO ONE ×2 (14:51→14:58)
[2021-12-29] MEDS ORDERED: GABA-1181 PO (16:27)
[2021-12-29 16:40] VITALS: BP 161/65
== END 2021-12-29 16:41 | disposition home or self-care (01) ==
LOC: EMS 13:43
DX: M54.31 Sciatica, right side (principal); E11.9 Type 2 diabetes mellitus without complications; E03.9 Hypothyroidism, unspecified; I10 Essential (primary) hypertension; M10.9 Gout, unspecified; Z90.49 Acquired absence of other specified parts of digestive tract; Z90.710 Acquired absence of both cervix and uterus; Z90.721 Acquired absence of ovaries, unilateral; Z88.0 Allergy status to penicillin; Z88.5 Allergy status to narcotic agent
CPT/HCPCS: 73502; 96361; 96374; 99283; 99284

== ENCOUNTER 2022-01-03 00:59 | Emergency (ER) | payer MEDICARE, OTHER ==
[~2022-01-03] VITALS: Ht 149.9 cm; Wt 66.0 kg
[~2022-01-03 00:59] MED LIST changes: +GABA-1181 PO
[2022-01-03 01:00] VITALS: BP 146/80
[2022-01-03 01:36] LABS: BASOPHILS % (AUTO) 0.7 % (0.0-2.0); EOSINOPHILS % (AUTO) 3.8 % (1.0-6.0); HEMATOCRIT 38.4 % (36-46); HEMOGLOBIN 12.4 g/dL (12.0-16.0); LYMPHOCYTES # (AUTO) 1.6 K/uL (1.0-4.8); LYMPHOCYTES % (AUTO) 28.1 % (22.0-44.0); MEAN CORPUSCULAR HEMOGLOBIN 30.7 pg (26.0-34.0); MEAN CORPUSCULAR HGB CONC 32.4 G/dL (31.0-37.0); MEAN CORPUSCULAR VOLUME 95 fL (80-100); MONOCYTES # (AUTO) 0.7 K/uL (0.1-1.0); MONOCYTES % (AUTO) 11.5 % (2.0-9.0); NEUTROPHILS # (AUTO) 3.2 K/uL (1.8-7.7); NEUTROPHILS % (AUTO) 55.9 % (40.0-70.0); PLATELET COUNT (AUTO) 180 K/uL (150-450); RED BLOOD CELL COUNT(AUTO) 4.05 MIL/uL (4.00-5.20)
[2022-01-03 01:47] LABS: CALCIUM, TOTAL 9.6 mg/dL (8.8-10.5); CREATININE 1.02 mg/dL (0.60-1.30); POTASSIUM 4.3 mmol/L (3.5-5.1)
== END 2022-01-03 04:17 | disposition home or self-care (01) ==
LOC: EMS 01:00
DX: K12.1 Other forms of stomatitis (principal); K12.30 Oral mucositis (ulcerative), unspecified; E11.9 Type 2 diabetes mellitus without complications; I10 Essential (primary) hypertension; E03.9 Hypothyroidism, unspecified; M10.9 Gout, unspecified; Z90.710 Acquired absence of both cervix and uterus; Z90.49 Acquired absence of other specified parts of digestive tract; Z90.721 Acquired absence of ovaries, unilateral; Z88.0 Allergy status to penicillin; Z91.040 Latex allergy status; Z88.8 Allergy status to other drugs, medicaments and biological substances
CPT/HCPCS: 80048; 85025; 99283

== ENCOUNTER → 2022-02-27 | Outpatient (CLI) | payer MEDICARE, OTHER ==
[~2022-02-27] VITALS: Ht 144.8 cm; Wt 71.5 kg
[2022-02-27 10:11] VITALS: BP 134/63
== END | disposition home or self-care (01) ==
LOC: SRCNTR 09:46
PROVIDERS: ATTEND Internal Medicine Cardiovascular Disease
DX: I10 Essential (primary) hypertension (principal); Z09 Encounter for follow-up examination after completed treatment for conditions other than malignant neoplasm; I49.9 Cardiac arrhythmia, unspecified; E78.5 Hyperlipidemia, unspecified; E03.9 Hypothyroidism, unspecified; M34.1 CR(E)ST syndrome
CPT/HCPCS: G0463

== ENCOUNTER → 2022-04-24 | Outpatient (CLI) | payer MEDICARE, OTHER ==
[~2022-04-24] VITALS: Ht 144.8 cm; Wt 71.0 kg
[2022-04-24 10:39] VITALS: BP 136/44
== END | disposition home or self-care (01) ==
LOC: SRCNTR 10:17
PROVIDERS: ATTEND Internal Medicine Cardiovascular Disease
DX: Z09 Encounter for follow-up examination after completed treatment for conditions other than malignant neoplasm (principal); I10 Essential (primary) hypertension; E03.9 Hypothyroidism, unspecified; E78.5 Hyperlipidemia, unspecified; I49.8 Other specified cardiac arrhythmias; M34.1 CR(E)ST syndrome
CPT/HCPCS: G0463; Z7500

== ENCOUNTER → 2022-06-20 | Outpatient (CLI) | payer MEDICARE, OTHER ==
[~2022-06-20] VITALS: Ht 147.3 cm; Wt 69.0 kg
[~2022-06-20] MED LIST changes: +ALLO-97 PO; +AMLO-257 PO; +DICL2SOL TP; +EMPA10TA3 PO
[2022-06-20 14:41] VITALS: BP 104/74
== END | disposition home or self-care (01) ==
LOC: SRCNTR 14:09
PROVIDERS: ATTEND Internal Medicine Cardiovascular Disease
DX: Z09 Encounter for follow-up examination after completed treatment for conditions other than malignant neoplasm (principal); I10 Essential (primary) hypertension; I49.8 Other specified cardiac arrhythmias; E78.5 Hyperlipidemia, unspecified; M10.9 Gout, unspecified; M34.1 CR(E)ST syndrome; E03.9 Hypothyroidism, unspecified
CPT/HCPCS: G0463

== ENCOUNTER → 2022-08-28 | Outpatient (CLI) | payer MEDICARE, OTHER ==
[~2022-08-28] VITALS: Ht 144.8 cm; Wt 73.0 kg
[~2022-08-28] MED LIST changes: -AMLO2.5T96 PO; +ATOR20TA PO; -ATOR20TA86 PO; -GABA-1181 PO
[2022-08-28 10:59] VITALS: BP 125/53
== END | disposition home or self-care (01) ==
LOC: SRCNTR 10:34
PROVIDERS: ATTEND Internal Medicine Cardiovascular Disease
DX: Z09 Encounter for follow-up examination after completed treatment for conditions other than malignant neoplasm (principal); I49.8 Other specified cardiac arrhythmias; I10 Essential (primary) hypertension; E78.5 Hyperlipidemia, unspecified; M10.9 Gout, unspecified; M34.1 CR(E)ST syndrome; E03.9 Hypothyroidism, unspecified
CPT/HCPCS: G0463

== ENCOUNTER → 2022-10-02 | Outpatient (CLI) | payer MEDICARE, OTHER ==
[~2022-10-02] VITALS: Ht 144.8 cm; Wt 72.5 kg
[2022-10-02 13:06] VITALS: BP 135/61; PULSE 56; RESP 20; TEMP 97.9; O2SAT 100
== END | disposition home or self-care (01) ==
LOC: SRCNTR 12:16
PROVIDERS: ATTEND Internal Medicine Pulmonary Disease
DX: I10 Essential (primary) hypertension (principal); M10.9 Gout, unspecified; I73.00 Raynaud's syndrome without gangrene
CPT/HCPCS: G0463; Z7500

== ENCOUNTER → 2022-11-14 | Outpatient (CLI) | payer MEDICARE, OTHER ==
[~2022-11-14] MED LIST changes: -EMPA10TA3 PO
== END | disposition home or self-care (01) ==
LOC: RADMN 09:20
PROVIDERS: ATTEND Internal Medicine Pulmonary Disease
DX: R91.1 Solitary pulmonary nodule (principal); I70.0 Atherosclerosis of aorta; I25.10 Atherosclerotic heart disease of native coronary artery without angina pectoris; I51.7 Cardiomegaly; R16.0 Hepatomegaly, not elsewhere classified; M47.814 Spondylosis without myelopathy or radiculopathy, thoracic region; Z90.49 Acquired absence of other specified parts of digestive tract
CPT/HCPCS: 71250

== ENCOUNTER 2022-12-23 19:18 | Emergency (ER) | payer MEDICARE, OTHER ==
[~2022-12-23] VITALS: Ht 157.5 cm; Wt 73.2 kg
[2022-12-23 19:26] VITALS: TEMP 98.2
[2022-12-23 20:40] LABS: BASOPHILS % (AUTO) 0.7 % (0.0-2.0); EOSINOPHILS % (AUTO) 3.2 % (1.0-6.0); HEMATOCRIT 37.8 % (36-46); HEMOGLOBIN 12.3 g/dL (12.0-16.0); LYMPHOCYTES # (AUTO) 1.3 K/uL (1.0-4.8); MEAN CORPUSCULAR HEMOGLOBIN 31.4 pg (26.0-34.0); MEAN CORPUSCULAR HGB CONC 32.6 G/dL (31.0-37.0); MEAN CORPUSCULAR VOLUME 96 fL (80-100); MONOCYTES # (AUTO) 0.5 K/uL (0.1-1.0); MONOCYTES % (AUTO) 12.6 % (2.0-9.0); NEUTROPHILS # (AUTO) 2.3 K/uL (1.8-7.7); NEUTROPHILS % (AUTO) 53.5 % (40.0-70.0); PLATELET COUNT (AUTO) 160 K/uL (150-450); RED BLOOD CELL COUNT(AUTO) 3.93 MIL/uL (4.00-5.20); RED CELL DISTRIBUTION WIDTH 15.6 % (11.5-14.5); WHITE BLOOD COUNT (AUTO) 4.3 K/uL (4.5-11.0)
[2022-12-23 20:50] LABS: ANION GAP 6 mmol/L (8-16); CALCIUM, TOTAL 9.3 mg/dL (8.8-10.5); CARBON DIOXIDE 30 mmol/L (22-29); CHLORIDE 106 mmol/L (98-107); CREATININE 0.88 mg/dL (0.60-1.30); GLOMERULAR FILTR. RATE CALC > 60 mL/min (>60); GLUCOSE,RANDOM 92 mg/dL (70-110); POTASSIUM 3.9 mmol/L (3.5-5.1); SODIUM SERUM 142 mmol/L (136-145); UREA NITROGEN, BLOOD 13 mg/dL (7-18)
[2022-12-23 20:55] LABS: PROTHROMBIN TIME 10.5 SEC (9.4-11.6)
[2022-12-23 20:56] LABS: ALBUMIN 3.4 g/dL (3.4-5.0); ALKALINE PHOSPHATASE 62 U/L (46-116); ASPARTATE AMINOTRANSFERASE 20 U/L (15-37); BILIRUBIN,TOTAL 0.5 mg/dL (0.1-1.0); CREATINE KINASE, TOTAL ONLY 74 U/L (26-192); TOTAL PROTEIN, SERUM 7.1 g/dL (6.4-8.2)
[2022-12-23 20:57] LABS: TROPONIN I-HIGH SENSITIVITY 25 ng/L (<51)
[2022-12-23 20:58] LABS: ALANINE AMINOTRANSFERASE < 6 U/L (12-78)
[2022-12-23 22:40] VITALS: BP 137/47; PULSE 62; RESP 15
[2022-12-23 23:42] LABS: APPEARANCE,URINE CLEAR (CLEAR); BILIRUBIN,URINE NEGATIVE (NEGATIVE); COLOR,URINE LIGHT YELLOW (YELLOW); GLUCOSE, URINE (UA) NEGATIVE (NEGATIVE); KETONES,URINE NEGATIVE (NEGATIVE); LEUKOCYTE ESTERASE ,URINE MODERATE (NEGATIVE); NITRATE,URINE NEGATIVE (NEGATIVE); OCCULT BLOOD,URINE NEGATIVE (NEGATIVE); PH,URINE 5.5 (5.0-8.0); PROTEIN,URINE 30-70 mg/dL (NEGATIVE); SPECIFIC GRAVITIY, URINE 1.011 (1.003-1.030); UROBILINOGEN,URINE <=1.0 mg/dL (<=1.0)
[2022-12-24 00:15] LABS: BACTERIA,URINE Rare /HPF (None Seen); RBC,URINE 0-2 /HPF (0-2); SQUAMOUS EPITHELIAL CELL,UR Few /LPF (None Seen)
[2022-12-24] MEDS ORDERED: NITR100C4 PO (00:48)
[2022-12-24] MEDS ORDERED: NITROFURANTOIN MONOHYD/M-CRYST 100 MG CAPSULE [MACROBID] PO ONE (01:00)
[2022-12-24 06:51] LABS: GLUCOMETER DEV NAME(LOC) ERT.5; GLUCOSE,POINT OF CARE 75 MG/DL (70-110)
[2022-12-24] MEDS ORDERED: NITR-75 PO (14:52)
== END 2022-12-24 01:20 | disposition home or self-care (01) ==
LOC: EMS 19:21
DX: N39.0 Urinary tract infection, site not specified (principal); I10 Essential (primary) hypertension; E11.9 Type 2 diabetes mellitus without complications; E03.9 Hypothyroidism, unspecified; Z90.49 Acquired absence of other specified parts of digestive tract; Z90.710 Acquired absence of both cervix and uterus; Z98.890 Other specified postprocedural states; Z90.722 Acquired absence of ovaries, bilateral; Z88.0 Allergy status to penicillin; Z88.8 Allergy status to other drugs, medicaments and biological substances
CPT/HCPCS: 71045; 80053; 81001; 82550; 82962; 83880; 84484; 85025; 85610; 85730; 87086; 87186; 93005; 99285; 36415-L1; 36415-TC

== ENCOUNTER 2022-12-31 17:52 | Emergency (ER) | payer MEDICARE, OTHER ==
[~2022-12-31] VITALS: Ht 149.9 cm; Wt 74.1 kg
[~2022-12-31 17:52] MED LIST changes: +NITR-75 PO; +NITR100C4 PO
[2022-12-31 18:06] VITALS: TEMP 98
[2022-12-31 19:35] LABS: BASOPHILS % (AUTO) 1.2 % (0.0-2.0); EOSINOPHILS % (AUTO) 2.7 % (1.0-6.0); HEMATOCRIT 41.2 % (36-46); HEMOGLOBIN 13.4 g/dL (12.0-16.0); LYMPHOCYTES # (AUTO) 1.5 K/uL (1.0-4.8); LYMPHOCYTES % (AUTO) 31.4 % (22.0-44.0); MEAN CORPUSCULAR HEMOGLOBIN 31.7 pg (26.0-34.0); MEAN CORPUSCULAR HGB CONC 32.4 G/dL (31.0-37.0); MEAN CORPUSCULAR VOLUME 98 fL (80-100); MONOCYTES # (AUTO) 0.6 K/uL (0.1-1.0); MONOCYTES % (AUTO) 11.9 % (2.0-9.0); NEUTROPHILS # (AUTO) 2.5 K/uL (1.8-7.7); NEUTROPHILS % (AUTO) 52.8 % (40.0-70.0); PLATELET COUNT (AUTO) 183 K/uL (150-450); RED BLOOD CELL COUNT(AUTO) 4.21 MIL/uL (4.00-5.20); RED CELL DISTRIBUTION WIDTH 15.7 % (11.5-14.5); WHITE BLOOD COUNT (AUTO) 4.6 K/uL (4.5-11.0)
[2022-12-31 19:44] LABS: ANION GAP 6 mmol/L (8-16); CALCIUM, TOTAL 10.5 mg/dL (8.8-10.5); CARBON DIOXIDE 31 mmol/L (22-29); CHLORIDE 106 mmol/L (98-107); CREATININE 0.83 mg/dL (0.60-1.30); GLOMERULAR FILTR. RATE CALC > 60 mL/min (>60); GLUCOSE,RANDOM 102 mg/dL (70-110); POTASSIUM 4.2 mmol/L (3.5-5.1); SODIUM SERUM 143 mmol/L (136-145); UREA NITROGEN, BLOOD 12 mg/dL (7-18)
[2022-12-31 19:50] LABS: ALANINE AMINOTRANSFERASE 24 U/L (12-78); ALKALINE PHOSPHATASE 65 U/L (46-116); ASPARTATE AMINOTRANSFERASE 26 U/L (15-37); BILIRUBIN,TOTAL 0.6 mg/dL (0.1-1.0); TOTAL PROTEIN, SERUM 8.1 g/dL (6.4-8.2)
[2022-12-31 19:52] LABS: TROPONIN I-HIGH SENSITIVITY 40 ng/L (<51)
[2022-12-31 20:12] VITALS: PULSE 63; RESP 16
[2022-12-31 20:35] VITALS: BP 138/61
== END 2022-12-31 21:27 | disposition home or self-care (01) ==
LOC: EMS 17:53
DX: I12.9 Hypertensive chronic kidney disease with stage 1 through stage 4 chronic kidney disease, or unspecified chronic kidney disease (principal); N18.9 Chronic kidney disease, unspecified; E03.9 Hypothyroidism, unspecified; Z90.710 Acquired absence of both cervix and uterus; Z90.49 Acquired absence of other specified parts of digestive tract; Z90.722 Acquired absence of ovaries, bilateral; Z98.890 Other specified postprocedural states; Z91.040 Latex allergy status; Z88.0 Allergy status to penicillin; Z88.8 Allergy status to other drugs, medicaments and biological substances
CPT/HCPCS: 80053; 84484; 85025; 93005; 99284

== ENCOUNTER → 2023-01-01 | Outpatient (CLI) | payer MEDICARE, OTHER ==
[~2023-01-01] VITALS: Ht 147.3 cm; Wt 72.0 kg
[2023-01-01 10:55] VITALS: BP 138/57; PULSE 64; RESP 16; TEMP 98.2; O2SAT 99
== END | disposition home or self-care (01) ==
LOC: SRCNTR 10:39
PROVIDERS: ATTEND Internal Medicine Cardiovascular Disease
DX: Z09 Encounter for follow-up examination after completed treatment for conditions other than malignant neoplasm (principal); I10 Essential (primary) hypertension; I49.9 Cardiac arrhythmia, unspecified; E78.5 Hyperlipidemia, unspecified; M10.9 Gout, unspecified; E03.9 Hypothyroidism, unspecified; M34.1 CR(E)ST syndrome
CPT/HCPCS: G0463; Z7500

== ENCOUNTER → 2023-02-05 | Outpatient (CLI) | payer MEDICARE, OTHER ==
[~2023-02-05] VITALS: Ht 144.8 cm; Wt 71.0 kg
[~2023-02-05] MED LIST changes: -NITR100C4 PO
[2023-02-05 10:41] VITALS: BP 116/55; PULSE 58; RESP 16; TEMP 98; O2SAT 96
== END | disposition home or self-care (01) ==
LOC: SRCNTR 10:11
PROVIDERS: ATTEND Internal Medicine Cardiovascular Disease
DX: Z09 Encounter for follow-up examination after completed treatment for conditions other than malignant neoplasm (principal); I10 Essential (primary) hypertension; I49.8 Other specified cardiac arrhythmias; E78.5 Hyperlipidemia, unspecified; M10.9 Gout, unspecified; M34.1 CR(E)ST syndrome; E03.9 Hypothyroidism, unspecified
CPT/HCPCS: G0463; Z7500

== ENCOUNTER → 2023-02-16 | Outpatient (CLI) | payer MEDICARE, OTHER ==
[~2023-02-16] VITALS: Ht 147.3 cm; Wt 71.0 kg
[2023-02-16 11:30] VITALS: BP 130/74; PULSE 64; RESP 16; TEMP 97.7; O2SAT 99
[2023-02-16 12:14] VITALS: BP 130/74; PULSE 64; RESP 16; TEMP 97.7; O2SAT 99
== END | disposition home or self-care (01) ==
LOC: SRCNTR 11:08
PROVIDERS: ATTEND Internal Medicine Pulmonary Disease
DX: I10 Essential (primary) hypertension (principal); M10.9 Gout, unspecified; I73.00 Raynaud's syndrome without gangrene; R91.8 Other nonspecific abnormal finding of lung field; M34.1 CR(E)ST syndrome
CPT/HCPCS: G0463; Z7500

== ENCOUNTER → 2023-04-16 | Outpatient (CLI) | payer MEDICARE, OTHER ==
[~2023-04-16] VITALS: Ht 144.8 cm; Wt 74.0 kg
[2023-04-16 10:32] VITALS: BP 139/74; PULSE 67; RESP 18; TEMP 98; O2SAT 100
== END | disposition home or self-care (01) ==
LOC: SRCNTR 09:59
PROVIDERS: ATTEND Internal Medicine Cardiovascular Disease
DX: Z09 Encounter for follow-up examination after completed treatment for conditions other than malignant neoplasm (principal); I49.8 Other specified cardiac arrhythmias; I10 Essential (primary) hypertension; E78.5 Hyperlipidemia, unspecified; M10.9 Gout, unspecified; M34.1 CR(E)ST syndrome; E03.9 Hypothyroidism, unspecified
CPT/HCPCS: G0463; Z7500

== ENCOUNTER → 2023-07-02 | Outpatient (CLI) | payer MEDICARE, OTHER ==
[~2023-07-02] VITALS: Ht 144.8 cm; Wt 70.0 kg
[2023-07-02 10:28] VITALS: BP 122/64; PULSE 59; RESP 20; TEMP 98; O2SAT 100
== END | disposition home or self-care (01) ==
LOC: SRCNTR 10:07
PROVIDERS: ATTEND Internal Medicine Cardiovascular Disease
DX: Z09 Encounter for follow-up examination after completed treatment for conditions other than malignant neoplasm (principal); I49.8 Other specified cardiac arrhythmias; I10 Essential (primary) hypertension; E78.5 Hyperlipidemia, unspecified; M10.9 Gout, unspecified; M34.1 CR(E)ST syndrome; E03.9 Hypothyroidism, unspecified
CPT/HCPCS: G0463

== ENCOUNTER → 2023-08-15 | Outpatient (CLI) | payer MEDICARE, OTHER ==
[~2023-08-15] VITALS: Ht 149.9 cm; Wt 70.0 kg
[~2023-08-15] MED LIST changes: +ALLO100T PO; +AMLO5TAB66 PO; +FURO20TA4 PO; +LEVO50TA11 PO; +LISI20TA24 PO
[2023-08-15 10:24] VITALS: BP 114/64; PULSE 60; RESP 17; TEMP 98.6; O2SAT 97
== END | disposition home or self-care (01) ==
LOC: SRCNTR 10:05
PROVIDERS: ATTEND Internal Medicine Pulmonary Disease
DX: R91.8 Other nonspecific abnormal finding of lung field (principal); I10 Essential (primary) hypertension; M34.1 CR(E)ST syndrome; I73.00 Raynaud's syndrome without gangrene; Z79.899 Other long term (current) drug therapy; Z88.0 Allergy status to penicillin; Z79.82 Long term (current) use of aspirin; Z88.8 Allergy status to other drugs, medicaments and biological substances
CPT/HCPCS: G0463; Z7500

== ENCOUNTER → 2023-08-23 | Outpatient (CLI) | payer MEDICARE, OTHER ==
[~2023-08-23] MED LIST changes: -ATOR20TA PO; -DENO60DI SQ; -DICL2SOL TP; -NITR-75 PO
== END | disposition home or self-care (01) ==
LOC: RADMN 09:57
PROVIDERS: ATTEND Internal Medicine Pulmonary Disease
DX: R91.1 Solitary pulmonary nodule (principal)
CPT/HCPCS: 71250

== ENCOUNTER → 2024-10-20 | Outpatient (CLI) | payer MEDICARE, OTHER ==
[~2024-10-20] VITALS: Ht 144.8 cm; Wt 67.0 kg
[~2024-10-20] MED LIST changes: -ALLO-97 PO; -AMLO-257 PO; +ASPI-1450 PO; -ASPI-825 PO; +ATOR10TA PO; -CHOL200016 PO; +CHOL25TA4 PO; -FURO20TA4 PO; -FURO40 PO; -HYDR10TA31 PO; -LEVO25TA4 PO; +LISI-892 PO; -LISI-894 PO; -LISI20TA24 PO
[2024-10-20 10:39] VITALS: BP 146/60; PULSE 53; RESP 20; TEMP 98.1; O2SAT 100
== END | disposition home or self-care (01) ==
LOC: SRCNTR 09:58
PROVIDERS: ATTEND Internal Medicine Cardiovascular Disease
DX: I49.8 Other specified cardiac arrhythmias (principal); Z09 Encounter for follow-up examination after completed treatment for conditions other than malignant neoplasm; I10 Essential (primary) hypertension; E78.5 Hyperlipidemia, unspecified; E03.9 Hypothyroidism, unspecified; M34.1 CR(E)ST syndrome; M10.9 Gout, unspecified; Z79.82 Long term (current) use of aspirin; Z79.899 Other long term (current) drug therapy; Z88.0 Allergy status to penicillin; Z91.041 Radiographic dye allergy status
CPT/HCPCS: G0463

== ENCOUNTER → 2025-01-05 | Outpatient (CLI) | payer MEDICARE, OTHER ==
[~2025-01-05] VITALS: Ht 144.8 cm; Wt 67.4 kg
[2025-01-05 11:18] VITALS: BP 146/47; PULSE 60; RESP 20; TEMP 97.7; O2SAT 98
== END | disposition home or self-care (01) ==
LOC: SRCNTR 10:16
PROVIDERS: ATTEND Internal Medicine Cardiovascular Disease
DX: I10 Essential (primary) hypertension (principal); K59.00 Constipation, unspecified; E03.9 Hypothyroidism, unspecified; E78.5 Hyperlipidemia, unspecified; M10.00 Idiopathic gout, unspecified site; M34.1 CR(E)ST syndrome; Z79.82 Long term (current) use of aspirin; Z79.899 Other long term (current) drug therapy; Z88.0 Allergy status to penicillin; Z91.041 Radiographic dye allergy status
CPT/HCPCS: G0463